=== PATIENT | female | born 1975 | race Caucasian/White ===

== ENCOUNTER → 2018-02-09 16:55 | Emergency (ER) | payer OTHER ==
[~2018-02-09 16:55] MED LIST: Dexamethasone IV* 4 MG/ML 5 ML VIAL (20 MG) IVPB ONE; Famotidine IV* 10 MG/ML 2 ML (20 mg) IV ONE; Famotidine TAB* 20 MG PO ONE; Iodixanol* (CONTRAST) 320 MG/ML 100 ML SDV IV ONE; NS 0.9% 1000 ML* 1,000 ML IV SCH; diPHENhydraMINE IV* 50 MG/ML 1 ml VIAL (BENADRYL) IV ONE; methylPREDNISolone 125 MG* 2 ML VIAL IV ONE; predniSONE TAB* 20 MG PO ONE
[2018-02-09 18:37] LABS: ABS Basophils 0 10^3/ul (0-0.2); ABS Eosinophils 0.1 10^3/ul (0-0.6); ABS Lymphocytes 3.8 10^3/ul (1.0-4.8); ABS Monocytes 0.6 10^3/ul (0-0.8); ABS Neutrophils 4.2 10^3/ul (1.5-7.7); ABS Nucleated RBC 0 10^3/ul; Eosinophil % 0.9 % (0-6); Hematocrit 37 % (35-47); Hemoglobin 12.4 g/dl (12.0-16.0); Lymphocyte % 43.1 % (25-47); Mean Corpuscular HGB Conc 34 g/dl (31-36); Mean Corpuscular Hemoglobin 28 pg (27-31); Mean Corpuscular Volume 85 fL (80-97); Mean Platelet Volume 8.2 um3 (7.4-10.4); Nucleated Red Blood Cells % 0.1; Platelet Count 246 10^3/ul (150-450); Red Blood Count 4.39 10^6/ul (4.0-5.4); Red Cell Distribution Width 14 % (10.5-15); White Blood Count 8.8 10^3/ul (3.5-10.8)
[2018-02-09 18:49] LABS: INR 0.87 (0.77-1.02)
[2018-02-09 18:55] LABS: EGFR Non-African American 57.6 (>60)
--- NOTE | 2018-02-09 19:41 | RAD ---
INDICATION: LEFT cheek and upper LEFT neck swelling following dental work. COMPARISON: No relevant prior exams available on the [facility] PACS for comparison. TECHNIQUE: Multidetector CT images skull base to lung apices with 50 mL Visipaque 320 IV contrast. Multiplanar reformation. REPORT: Clear visualized lung apices. Artifact from dental amalgam limits image quality. Subcutaneous and buccal fat edema at the LEFT face without evidence for a loculated fluid collection to indicate abscess. Unremarkable parotid, submandibular, and thyroid glands. Unremarkable nasopharyngeal mucosal space contours. Suggestion of retained secretions at the vallecula. Unremarkable epiglottis and piriform recesses. Unremarkable larynx and visualized subglottic airway. Symmetric normal-appearing parapharyngeal fat. The visualized cervical lymph nodes are within normal size limits based on short axis criteria. Negative for lymphadenopathy. Patent bilateral internal jugular veins. Unremarkable orbital contents. Clear paranasal sinuses and mastoid air spaces. No osteolysis, periosteal reaction, or other suspicious osseous finding. IMPRESSION: Subcutaneous and buccal fat edema at the LEFT face without evidence for a loculated fluid collection to indicate abscess.
--- NOTE | 2018-02-09 20:41 | ED ---
[place] Ndiaye Stephanie, scribed for Seamus Mak MD on 02/09/18 at 1732 . Allergic Reaction/Systemic - HPI Summary HPI Summary: The pt is a 42 y/o F presenting to the ED with c/o L facial swelling that began at approximately 15:30 today. Symptoms include slight difficulty swallowing. The pt had a cavity filling done at 14:30 which ended at 15:30. The pt states by the time her procedure finished her cheek had already began swelling. The pt reports having a dental procedure done last week on the R side of her mouth to which she did not have a swelling reaction. - History of Current Complaint Chief Complaint: EDAllergicReaction Time Seen by Provider: 02/09/18 17:21 Hx Obtained From: Patient Hx Last Menstrual Period: 11/10/14 Onset/Duration: Gradual Onset, Started hours ago, Still Present Timing: Constant Severity Currently: Moderate Pain Intensity: 6 Pain Scale Used: 0-10 Numeric Location: Discrete @ - L cheek Character: Swelling Aggravating Factor(s): Nothing Alleviating Factor(s): Nothing Associated Signs And Symptoms: Positive: Other: - difficulty swallowing - Allergies/Home Medications Allergies/Adverse Reactions: Allergies Allergy/AdvReac Type Severity Reaction Status Date / Time amoxicillin Allergy Rash Verified 02/09/18 17:09 Home Medications: Home Medications Desogestrel-Ethinyl Estradiol [Juleber 0.15-30 mg-Mcg] 1 tab PO DAILY 02/09/18 [ History Confirmed 02/09/18] Levothyroxine TAB* [Synthroid TAB*] 50 mcg PO DAILY 02/09/18 [History Confirmed 02/09/18] Liothyronine TAB* [Cytomel TAB*] 2.5 mcg PO DAILY 02/09/18 [History Confirmed ] PMH/Surg Hx/FS Hx/Imm Hx Sensory History: Denies: Hx Legally Blind EENT History: Denies: Hx Deafness - Cancer History Hx Chemotherapy: No Hx Radiation Therapy: No - Surgical History Surgery Procedure, Year, and Place: HERNIA REPAIR 2000. 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 Denies: Hx Clostridium Difficile, Hx Hepatitis, Hx Human Immunodeficiency Virus (HIV), Hx Shingles, Hx Tuberculosis, Hx Known/Suspected VRE, Hx Known/ Suspected VRSA, History Other Infectious Disease, Traveled Outside the [place] in Last 30 Days - Family History Known Family History: Negative: Renal Disease - Social History Occupation: Employed Full-time Lives: With Family Alcohol Use: Occasionally Hx Substance Use: No Substance Use Type: Reports: None Hx Tobacco Use: No Smoking Status (MU): Never Smoked Tobacco Have You Smoked in the Last Year: No Review of Systems Negative: Fever Positive: Other - difficulty swallowing Positive: Other - L cheek swelling Negative: Slurred Speech All Other Systems Reviewed And Are Negative: Yes Physical Exam - Summary Physical Exam Summary: General: well-appearing, no pain distress Skin: warm, color reflects adequate perfusion, dry Head: normal Eyes: EOMI, BRITTNI ENT: swelling within the interior and exterior L cheek, oral pharynx open, voice nml Neck: supple, nontender Respiratory: CTA, breath sounds present Cardiovascular: RRR Abdomen: soft, nontender Bowel: present Musculoskeletal: normal, strength/ROM intact Neurological: normal, sensory/motor intact, A&O x3 Psychological: affect/mood appropriate Triage Information Reviewed: Yes Vital Signs On Initial Exam: Initial Vitals Temp Pulse Resp BP Pulse Ox 99.1 F 81 20 142/96 96 02/09/18 17:01 02/09/18 17:01 02/09/18 17:01 02/09/18 17:01 02/09/18 17:01 Vital Signs Reviewed: Yes Diagnostics - Vital Signs Vital Signs Temp Pulse Resp BP Pulse Ox 02/09/18 17:01 99.1 F 81 20 142/96 96 - Laboratory Lab Results: Lab Results 02/09/18 02/09/18 02/09/18 Range/Units 18:24 18:24 18:24 WBC 8.8 (3.5-10.8) 10^3/ul RBC 4.39 (4.0-5.4) 10^6/ul Hgb 12.4 (12.0-16.0) g/dl Hct 37 (35-47) % MCV 85 (80-97) fL MCH 28 (27-31) pg MCHC 34 (31-36) g/dl RDW 14 (10.5-15) % Plt Count 246 (150-450) 10^3/ul MPV 8.2 (7.4-10.4) um3 Neut % (Auto) 48.1 (38-83) % Lymph % (Auto) 43.1 (25-47) % [place] % (Auto) 7.3 H (0-7) % Eos % (Auto) 0.9 (0-6) % Baso % (Auto) 0.6 (0-2) % Absolute Neuts (auto) 4.2 (1.5-7.7) 10^3/ul Absolute Lymphs (auto) 3.8 (1.0-4.8) 10^3/ul Absolute Monos (auto) 0.6 (0-0.8) 10^3/ul Absolute Eos (auto) 0.1 (0-0.6) 10^3/ul Absolute Basos (auto) 0 (0-0.2) 10^3/ul Absolute Nucleated RBC 0 10^3/ul Nucleated RBC % 0.1 INR (Anticoag Therapy) 0.87 (0.77-1.02) APTT 33.6 (26.0-36.3) seconds Sodium 139 (139-145) mmol/L Potassium 4.0 (3.5-5.0) mmol/L Chloride 104 (101-111) mmol/L Carbon Dioxide 27 (22-32) mmol/L Anion Gap 8 (2-11) mmol/L BUN 8 (6-24) mg/dL Creatinine 1.04 H (0.51-0.95) mg/dL Est GFR ( Amer) 74.0 (>60) Est GFR (Non-Af Amer) 57.6 (>60) BUN/Creatinine Ratio 7.7 L (8-20) Glucose 88 (70-100) mg/dL Calcium 9.1 (8.6-10.3) mg/dL Total Bilirubin 0.40 (0.2-1.0) mg/dL AST 34 (13-39) U/L ALT 34 (7-52) U/L Alkaline Phosphatase 43 (34-104) U/L Total Protein 6.7 (6.4-8.9) g/dL Albumin 3.9 (3.2-5.2) g/dL Globulin 2.8 (2-4) g/dL Albumin/Globulin Ratio 1.4 (1-3) Result Diagrams: 02/09/18 18:24 02/09/18 18:24 Lab Statement: Any lab studies that have been ordered have been reviewed, and results considered in the medical decision making process. - CT Neck CT Interpretation: Positive (See Comments) CT Interpretation Completed By: Radiologist - Subcutaneous and buccal fat edema at the LEFT face without evidence for a loculated fluid collection to indicate abscess. ED physician has reviewed this report. Re-Evaluation - Re-Evaluation First Eval Re-Evaluation Time: 20:24 Change: Unchanged - ED physician discussed the plan of discharge with the pt and the pt understands and agrees. Allergic Reaction Course/Dx - Course Course Of Treatment: DISCUSSED RESULTS WITH THE PATIENT. SWELLING HAS NOT INCREASED IN THE ED. NO AIRWAY COMPROMISE. SWELLING DDX INCLUDED STS FROM TRAUMA OR LOCALIZED ALLERGIC REACTION. WILL TREAT ALLERGIC RXN UT, ALSO WITH COLD COMPRESSES. F/U PMD/DENTIST; RETURN IF WORSE. - Diagnoses Provider Diagnoses: Left facial swelling Discharge - Sign-Out/Discharge Documenting (check all that apply): Discharge/Admit/Transfer - Discharge Plan Condition: Stable Disposition: HOME Prescriptions: Famotidine TAB* [Pepcid 20 MG TAB*] 20 mg PO BID PRN #8 tab PRN Reason: Allergy Symptoms predniSONE TAB* [Deltasone TAB*] 40 mg PO DAILY PRN #6 tab PRN Reason: Allergy Symptoms Referrals: Ana Bahena MD [Primary Care Provider] - Additional Instructions: FOLLOW UP WITH YOUR DOCTOR. RETURN TO THE EMERGENCY DEPARTMENT FOR ANY WORSENING OF YOUR CONDITION; DIFFICULTY BREATHING OR SWALLOWING, YOU FEEL ILL OR QUESTIONS OR CONCERNS. - Billing Disposition and Condition Condition: STABLE Disposition: HOME The documentation as recorded by the [place] andrade Stephanie accurately reflects the service I personally performed and the decisions made by me, Seamus Mak MD.
[2018-02-10 00:14] VITALS: BP 143/79
== END | disposition home or self-care (01) ==
LOC: ED 16:55
DX: R22.0 Localized swelling, mass and lump, head (principal); R13.10 Dysphagia, unspecified; Z88.0 Allergy status to penicillin
CPT/HCPCS: 36415; 70491; 80053; 85025; 85610; 85730; 96374; 96375; 99284; A9270-GY; J1100; J1200; J2930; J7512; Q9967

== ENCOUNTER 2019-05-17 07:37 | Emergency (ER) | payer OTHER ==
[2019-05-17 07:45] VITALS: BP 128/75
--- NOTE | 2019-05-17 09:25 | UC ---
General HPI - HPI Summary HPI Summary: Pleasant 43 yo female c/o ant chest and ant neck rash. Woke up this am with it , but felt it start during the night. Not sure if related to stress (recent very high stressors). LLE med calf + blisters, thinks may be related to poison ángel or similar s/p walking outside a few days ago. No sob /cp. No fever / chills. No GI / issues. No uri. - History of Current Complaint Chief Complaint: UCRash Stated Complaint: RASH Time Seen by Provider: 05/17/19 08:40 Hx Last Menstrual Period: 05/13/19 Pain Intensity: 0 - Allergy/Home Medications Allergies/Adverse Reactions: Allergies Allergy/AdvReac Type Severity Reaction Status Date / Time amoxicillin Allergy Rash Verified 02/09/18 17:09 PMH/Surg Hx/FS Hx/Imm Hx Previously Healthy: Yes - Surgical History Surgical History: None Surgery Procedure, Year, and Place: HERNIA REPAIR 2000. Right Ovarian cysts removal - Family History Known Family History: Negative: Renal Disease - Social History Alcohol Use: Occasionally Substance Use Type: None Smoking Status (MU): Never Smoked Tobacco Have You Smoked in the Last Year: No Review of Systems All Other Systems Reviewed And Are Negative: Yes Constitutional: Positive: Negative Skin: Positive: Other - see hpi Eyes: Positive: Negative ENT: Positive: Negative Respiratory: Positive: Negative Cardiovascular: Positive: Negative Gastrointestinal: Positive: Negative Genitourinary: Positive: Negative Motor: Positive: Negative Neurovascular: Positive: Negative Musculoskeletal: Positive: Negative Neurological: Positive: Negative Psychological: Positive: Negative Is Patient Immunocompromised?: No Physical Exam Triage Information Reviewed: Yes Appearance: Well-Nourished - sitting up, conversing easily and appropriately Vital Signs: Initial Vital Signs Temp 98 F 05/17/19 07:42 Pulse 95 05/17/19 07:42 Resp 16 05/17/19 07:42 BP 128/75 05/17/19 07:42 Pulse Ox 100 05/17/19 07:42 Vital Signs Reviewed: Yes Eye Exam: Normal ENT: Positive: Pharynx normal, TM dull - TM dull L ok R Neck exam: Other - see skin Neck: Positive: Supple, Nontender, No Lymphadenopathy Respiratory Exam: Normal - RR normal Respiratory: Positive: Chest non-tender, Lungs clear, Normal breath sounds, No respiratory distress, No accessory muscle use Cardiovascular Exam: Normal Cardiovascular: Positive: RRR, No Murmur, Pulses Normal, Brisk Capillary Refill Abdominal Exam: Normal Abdomen Description: Positive: Nontender Musculoskeletal Exam: Normal - see skin exam (mdm section) Neurological Exam: Normal - grossly nonfocal Psychological Exam: Normal - conversing easily and appropriately Course/Dx - Course Course Of Treatment: Rash on neck and upper chest, blanching and nonblanching. No bulls eye. no target lesions. + maculopapular. Not cellulitic. Unable to take po corticosteroids d/t racing feeling. Will start antihistamine. Hydrate. Blister L med leg x 1, approx 3 x 2 cm x 2. Superior most blister with serous fluid, no purulence. Suspect chemical or phytophoto component, but unclear hx. D/w pt wound care, highly recommend frequent elevation as possible. Consider compression, will check with pcp. Questions as posed answered to the best of my ability. - Diagnoses Provider Diagnosis: Rash Discharge - Sign-Out/Discharge Documenting (check all that apply): Patient Departure All imaging exams completed and their final reports reviewed: No Studies - Discharge Plan Condition: Stable Disposition: HOME Prescriptions: Triamcinolone 0.1% CREAM (NF) [Kenalog 0.1% Cream (NF)] 1 applic .SEE ORDER BID 5 Days #1 tube Patient Education Materials: Antihistamine (By mouth), Acute Rash (ED) Forms: *Work Release Referrals: Ana Bahena MD [Primary Care Provider] - Additional Instructions: Rest. Hydrate. Until you feel better - avoid the following: hot shower (lukewarm ok) aspirin scented soaps / perfoms. AVOID ASTRINGENTS - INCLUDING RUBBING ALCOHOL AND HYDROGEN PEROXIDE. If worse or new symptoms - or no better in 2 days - then follow up with your primary care physician, or go to the Emergency Department. - Billing Disposition and Condition Condition: STABLE Disposition: Home
== END 2019-05-17 09:35 | disposition home or self-care (01) ==
LOC: UCEAST 07:37
DX: R21 Rash and other nonspecific skin eruption (principal)
CPT/HCPCS: 99212; G0463

== ENCOUNTER 2019-07-11 19:11 | Emergency (ER) | payer OTHER ==
--- NOTE | 2019-07-11 19:36 | UC ---
General HPI - HPI Summary HPI Summary: Patient is a 43yo female presenting with painful lump under the left armpit x1 day. Patient states it is tender and she cannot wear her wired bras because they cause more pain. She states she had an exam and a mammogram done on Thursday last week which all came back as normal. Patient notes redness and warmth to the area that has worsened since yesterday. Patient denies drainage from the area. Denies radiating pain. Denies itching. Denies fever and chills. Denies n/v/d. Denies any know trauma to the skin. - History of Current Complaint Chief Complaint: UCSkin Stated Complaint: LUMP UNDER L. ARM Hx Obtained From: Patient Hx Last Menstrual Period: 12 days ago Onset/Duration: Sudden Onset, Lasting Days Onset Severity: Mild Current Severity: Mild Pain Intensity: 4 - Allergy/Home Medications Allergies/Adverse Reactions: Allergies Allergy/AdvReac Type Severity Reaction Status Date / Time amoxicillin Allergy Rash Verified 07/11/19 19:22 Home Medications: Home Medications Multivitamin [Multivitamins] 1 each PO DAILY 07/11/19 [History Confirmed ] PMH/Surg Hx/FS Hx/Imm Hx Previously Healthy: Yes Endocrine History: Hypothyroidism - Surgical History Surgical History: Yes Surgery Procedure, Year, and Place: HERNIA REPAIR 2000. Right Ovarian cysts removal. left shoulder melanoma removed - Family History Known Family History: Negative: Renal Disease - Social History Alcohol Use: Occasionally Substance Use Type: None Smoking Status (MU): Never Smoked Tobacco Have You Smoked in the Last Year: No Review of Systems All Other Systems Reviewed And Are Negative: Yes Constitutional: Positive: Negative. Negative: Fever, Chills, Fatigue Skin: Positive: Rash, Other - lump under skin below left armpit ENT: Positive: Negative Respiratory: Positive: Negative. Negative: Shortness Of Breath, Cough Cardiovascular: Positive: Negative. Negative: Palpitations, Chest Pain Gastrointestinal: Positive: Negative. Negative: Abdominal Pain, Vomiting, Diarrhea, Nausea Motor: Positive: Negative Neurovascular: Positive: Negative Musculoskeletal: Positive: Negative Neurological: Positive: Negative Physical Exam Triage Information Reviewed: Yes Appearance: Well-Appearing, No Pain Distress, Well-Nourished Vital Signs: Initial Vital Signs Temp 98.7 F 07/11/19 19:17 Pulse 87 07/11/19 19:17 Resp 16 07/11/19 19:17 Pulse Ox 99 07/11/19 19:17 Vital Signs (72 hours) 07/11/19 07/11/19 19:17 19:44 Temperature 98.7 F Pulse Rate 87 Respiratory 16 Rate Blood Pressure 125/68 (mmHg) O2 Sat by Pulse 99 Oximetry Vital Signs Reviewed: Yes Eyes: Positive: Conjunctiva Clear ENT: Positive: Hearing grossly normal Neck: Positive: Supple Respiratory Exam: Normal Respiratory: Positive: No respiratory distress Cardiovascular: Positive: Pulses Normal Musculoskeletal Exam: Normal Musculoskeletal: Positive: Strength Intact, ROM Intact, No Edema Neurological Exam: Other - sensation grossly intact Neurological: Positive: Alert Psychological: Positive: Age Appropriate Behavior Skin: Positive: Other - 2cm firm, mobile lump noted beneath skin below left axilla. erythema and warmth surrounding the lump. no fluctuance or drainage noted. Course/Dx - Course Course Of Treatment: Educated patient on both cellulitis and abscesses. There was no indication for I &D today. I treated the patient with Bactrim for cellulitis and instructed her to apply warm compresse to the area twice a day. She may also use ibuprofen for pain relief. Instructed her to follow up if symptoms persist. Directed her to go to the emergency room if symptoms worsen, including fever, chills, nausea, vomiting, severe pain, or increasing redness or drainage of the area. - Diagnoses Provider Diagnosis: Cellulitis, Boil Discharge ED - Sign-Out/Discharge Documenting (check all that apply): Patient Departure All imaging exams completed and their final reports reviewed: No Studies - Discharge Plan Condition: Stable Disposition: HOME Prescriptions: Sulfamethox/Trimethoprim DS* [Bactrim DS 800/160 TAB*] 1 tab PO BID #14 tab Patient Education Materials: Cellulitis (ED), Abscess (ED) Referrals: Wanda Maharaj NP [Primary Care Provider] - If Needed Additional Instructions: As discussed, take Bactrim as prescribed for the treatment of your skin infection. Keep the area clean and dry. You may apply warm compresses to the area twice a day. You may take ibuprofen as directed for pain relief. Follow up with your primary care physician as listed below if your symptoms persist. Go to the emergency room if you experience fever, increasing redness and warmth to the area, drainage with increasing pain, or nausea and vomiting. - Billing Disposition and Condition Condition: STABLE Disposition: Home - Attestation Statements Provider Attestation: Per institutional requirements, I have reviewed the chart, however, I was not consulted specifically or made aware of this patient by the midlevel provider. I did not personally evaluate, interact with , or disposition this patient.
[2019-07-11 19:44] VITALS: BP 125/68
== END 2019-07-11 20:00 | disposition home or self-care (01) ==
LOC: UCEAST 19:11
DX: L03.112 Cellulitis of left axilla (principal); L02.422 Furuncle of left axilla; Z88.0 Allergy status to penicillin
CPT/HCPCS: 99212; G0463

== ENCOUNTER 2019-07-14 14:46 | Emergency (ER) | payer OTHER ==
[2019-07-14 15:15] VITALS: BP 121/79
--- NOTE | 2019-07-14 15:23 | UC ---
Skin Complaint HPI - HPI Summary HPI Summary: 43 yo female presents with abscess. She tells me she was seen here earlier this week and was dx'd with an abscess at her left arm pit and was placed on Bactrim. Since that time the area has enlarged and has become more firm and painful. She has been taking her anbx as prescribed. Denies fever or chills. No hx of MRSA. - History of Current Complaint Chief Complaint: UCUpperExtremity Time Seen by Provider: 07/14/19 15:23 Stated Complaint: ABCESS UNDER ARM Hx Obtained From: Patient Hx Last Menstrual Period: 07/03/19 Onset/Duration: Gradual Onset Onset Severity: Mild Current Severity: Moderate Pain Intensity: 8 Pain Scale Used: 0-10 Numeric - Allergy/Home Medications Allergies/Adverse Reactions: Allergies Allergy/AdvReac Type Severity Reaction Status Date / Time amoxicillin Allergy Rash Verified 07/14/19 15:15 PMH/Surg Hx/FS Hx/Imm Hx Endocrine History: Hypothyroidism - Surgical History Surgical History: Yes Surgery Procedure, Year, and Place: HERNIA REPAIR 2000. Right Ovarian cysts removal. left shoulder melanoma removed - Family History Known Family History: Negative: Renal Disease - Social History Occupation: Employed Full-time Lives: With Family Alcohol Use: Occasionally Substance Use Type: None Smoking Status (MU): Never Smoked Tobacco Have You Smoked in the Last Year: No Review of Systems All Other Systems Reviewed And Are Negative: No Constitutional: Positive: Negative Skin: Positive: Other - Abscess left axilla Respiratory: Positive: Negative Cardiovascular: Positive: Negative Neurological: Positive: Negative Psychological: Positive: Negative Physical Exam - Summary Physical Exam Summary: GENERAL: NAD. WDWN. No pain distress. SKIN: LEFT AXILLA: 4.0cm oval shaped area of mild erythema and induration with TTP. No streaking, drainage, or open wound. NECK: Supple. Nontender. No lymphadenopathy. CHEST: No accessory muscle use. Breathing comfortably and in no distress. CV: Pulses intact. Cap refill <2seconds NEURO: Alert. PSYCH: Age appropriate behavior. Triage Information Reviewed: Yes Vital Signs: Initial Vital Signs Temp 99.3 F 07/14/19 15:10 Pulse 78 07/14/19 15:10 Resp 16 07/14/19 15:10 BP 121/79 07/14/19 15:10 Pulse Ox 98 07/14/19 15:10 Vital Signs Reviewed: Yes Procedures - Incision and Drainage Left axilla Anesthesia: Local, Lidocaine Instrument(s): Scalpel - #11 Packing: Other - None Course/Dx - Course Course Of Treatment: The procedure was explained to the pt and all questions were answered. A time out was performed, witnessed, and signed. The area was cleansed with an alcohol pad. 2mL of 2% lidocaine without epi was administered and good anesthetization was achieved. A #11 blade was used to make a 5mm incision at the most central part of the abscess - copious yellow purulent material was expressed. Homeostasis achieved. The wound was bandaged with telfa . Pt tolerated procedure well. - Diagnoses Provider Diagnosis: Abscess of axilla, left Discharge ED - Sign-Out/Discharge Documenting (check all that apply): Patient Departure All imaging exams completed and their final reports reviewed: No Studies - Discharge Plan Condition: Stable Disposition: HOME Patient Education Materials: Abscess (ED) Referrals: Wanda Maharaj NP [Primary Care Provider] - Additional Instructions: If you develop a fever, shortness of breath, chest pain, new or worsening symptoms - please call your PCP or go to the ED immediately. 1) Change the dressing daily until well healed (likely 3-5 days) 2) Continue your antibiotic as prescribed until completed - Billing Disposition and Condition Condition: STABLE Disposition: Home
[2019-07-14] MEDS ORDERED: Lidocaine 2% PF * 5 ML VIAL INJ ONE (15:31)
== END 2019-07-14 16:10 | disposition home or self-care (01) ==
LOC: UCEAST 14:46
DX: L02.412 Cutaneous abscess of left axilla (principal); Z88.0 Allergy status to penicillin
CPT/HCPCS: 10060; 99212; G0463